=== PATIENT | female | born 1960 | race Caucasian/White ===

== ENCOUNTER 2018-10-28 22:35 | Emergency (ER) | payer MEDICAID ==
[~2018-10-28] VITALS: Ht 165.1 cm; Wt 66.7 kg
[2018-10-28 22:38] VITALS: Ht 165.1 cm; Wt 66.7 kg
[2018-10-28 23:06] LABS: BASOPHIL % 1.1 % (0-2); PLATELET COUNT 249 x10^3mcL (130-400); RED CELL DISTRIBUTION WIDTH 12.4 % (11.5-14.5)
[2018-10-28 23:25] LABS: ALBUMIN 3.8 g/dL (3.4-5.0); ALKALINE PHOSPHATASE 134 U/L (46-116); ALT/SGPT 33 U/L (14-59); AMYLASE 37 U/L (25-115); AST/SGOT 15 U/L (15-37); CALCIUM 9.4 mg/dL (8.5-10.1); CARBON DIOXIDE 27.4 mmol/L (21-32); CHLORIDE SERUM 100 mmol/L (98-107); CREATININE SERUM 0.7 mg/dL (0.6-1.0); GFR1 > 60 mL/min; GLUCOSE SERUM 355 mg/dL (74-106); LIPASE 275 IU/L (73-393); POTASSIUM SERUM 4.1 mmol/L (3.5-5.1); SODIUM SERUM 138 mmol/L (136-145); TOTAL PROTEIN, SERUM 7.5 g/dL (6.4-8.2)
[2018-10-29 01:09] VITALS: BP 126/64
== END 2018-10-29 01:22 | disposition home or self-care (01) ==
LOC: ED 22:35
PROVIDERS: Emergency Medicine
DX: N83.202 Unspecified ovarian cyst, left side (principal); E11.9 Type 2 diabetes mellitus without complications; E78.00 Pure hypercholesterolemia, unspecified; Z88.0 Allergy status to penicillin
CPT/HCPCS: J1885; J2405; J7030; Q0092

== ENCOUNTER 2019-04-14 14:23 | Emergency (ER) | payer MEDICAID ==
[~2019-04-14] VITALS: Ht 162.6 cm; Wt 65.8 kg
[2019-04-14 14:29] VITALS: Ht 162.6 cm; Wt 65.8 kg
[2019-04-14 16:05] VITALS: BP 128/75
== END 2019-04-14 16:05 | disposition home or self-care (01) ==
LOC: ED 14:23
DX: N39.0 Urinary tract infection, site not specified (principal); E11.65 Type 2 diabetes mellitus with hyperglycemia; E78.00 Pure hypercholesterolemia, unspecified; Z98.890 Other specified postprocedural states; Z88.0 Allergy status to penicillin
CPT/HCPCS: 82962; J0696

== ENCOUNTER 2019-04-15 14:49 | Emergency (ER) | payer MEDICAID | END 2019-04-15 16:30 | disposition left against medical advice (07) | LOC: ED 14:49 | DX: Z53.21 Procedure and treatment not carried out due to patient leaving prior to being seen by health care provider (principal) ==

== ENCOUNTER 2019-04-15 18:05 | Emergency (ER) | payer MEDICAID ==
[~2019-04-15] VITALS: Ht 165.1 cm; Wt 65.3 kg
[2019-04-15 18:15] VITALS: Ht 165.1 cm; Wt 65.3 kg
[2019-04-15 21:07] VITALS: BP 128/78
== END 2019-04-15 21:07 | disposition home or self-care (01) ==
LOC: ED 18:05
DX: N39.0 Urinary tract infection, site not specified (principal); E11.9 Type 2 diabetes mellitus without complications; E78.00 Pure hypercholesterolemia, unspecified; Z88.0 Allergy status to penicillin; Z98.890 Other specified postprocedural states
CPT/HCPCS: J0696